=== PATIENT | female | born 1950 | race Caucasian/White ===

== ENCOUNTER 2025-03-14 06:45 | Observation (INO) | payer MEDICARE ==
[~2025-03-14] VITALS: Ht 162.6 cm; Wt 65.8 kg
[2025-03-14 06:47] VITALS: TEMP 99.5
[2025-03-14 07:26] LABS: BASOPHILS % 0.3 % (0.0-1.0); EOSINOPHILS # (AUTO) 0.1 (0.0-0.4); EOSINOPHILS % 1.9 % (0.0-6.0); HEMATOCRIT 39.2 % (34.2-44.1); HEMOGLOBIN 12.2 g/dL (12.0-16.0); LYMPHOCYTES # (AUTO) 2.4 (1.0-3.2); LYMPHOCYTES % 31.9 % (18.0-39.1); MEAN CORPUSCULAR HEMOGLOBIN 28.4 pg (28-32); MEAN CORPUSCULAR HGB CONC 31.1 g/dL (31-35); MEAN CORPUSCULAR VOLUME 91.4 fL (81-99); MONOCYTES # (AUTO) 0.8 (0.2-0.8); NEUTROPHILS # (AUTO) 4.1 (2.1-6.9); NEUTROPHILS % 54.4 % (38.7-80.0); PLATELET COUNT 243 x10e3/uL (140-360); RED BLOOD COUNT 4.29 x10e6/uL (3.6-5.1); RED CELL DISTRIBUTION WIDTH 15.5 % (11.7-14.4); WHITE BLOOD COUNT 7.56 x10e3/uL (4.8-10.8)
[2025-03-14 07:36] LABS: INR 0.87; PROTHROMBIN TIME 12.4 seconds (11.9-14.5)
[2025-03-14 07:37] LABS: PARTIAL THROMBOPLASTIN TIME 27.1 seconds (23.8-35.5)
[2025-03-14 07:43] LABS: ALBUMIN 3.4 g/dL (3.5-5.0); ANION GAP 14.2 mmol/L (8-16); BILIRUBIN,TOTAL 0.4 mg/dL (0.2-1.2); CALCIUM 8.9 mg/dL (8.4-10.2); CREATININE, SERUM 0.74 mg/dL (0.57-1.11); MAGNESIUM 2.1 MG/DL (1.3-2.1); POTASSIUM 4.2 mmol/L (3.5-5.1); TOTAL PROTEIN 6.7 g/dL (6.5-8.1)
[2025-03-14 07:49] LABS: TROPONIN I 0.001 ng/mL (0-0.300)
[2025-03-14 08:19] LABS: BILIRUBIN,URINE NEGATIVE (NEGATIVE); CLARITY,URINE CLEAR (CLEAR); COLOR,URINE YELLOW (YELLOW); GLUCOSE, URINE NEGATIVE (NEGATIVE); KETONES,URINE NEGATIVE (NEGATIVE); LEUKOCYTE ESTERASE ,URINE NEGATIVE (NEGATIVE); NITRITE,URINE NEGATIVE (NEGATIVE); PH,URINE 7 (5 - 7); PROTEIN,URINE DIPSTICK NEGATIVE (NEGATIVE); URINE UROBILINOGEN 0.2 mg/dL (0.2 - 1)
[2025-03-14 08:29] LABS: BACTERIA,URINE RARE /HPF; EPITHELIAL CELLS,URINE RARE /LPF; RBC,URINE 0-5 /HPF (0-5); WBC,URINE (MAN) 0-5 /HPF (0-5)
[2025-03-14] MEDS: SODIUM CHLORIDE 0.9% 500ML 500 ML IV ONE (08:40)
[2025-03-14] MEDS ORDERED: IOPAMIDOL 370 MG/ML 100 ML INFUS..BTL INJ ONE (08:49)
[2025-03-14] MEDS ORDERED: ROSUVASTATIN CAL5 MG PO (08:53)
[2025-03-14] MEDS ORDERED: TIZANIDINE HCL2 MG PO (08:53)
[2025-03-14] MEDS ORDERED: ATIVAN0.5 MG PO (08:53)
[2025-03-14] MEDS ORDERED: ZYRTEC10 M3 PEG (08:53)
[2025-03-14] MEDS ORDERED: PANTOPRAZOLE SO40 MG PO (08:53)
[2025-03-14] MEDS ORDERED: LOPRESSOR25 MG PO (08:53)
[2025-03-14] MEDS ORDERED: OLANZAPINE5 MG PO (08:53)
[2025-03-14] MEDS ORDERED: ONDANSETRON HCL INJ 2MG/ML 2ML 2 MG/ML VIAL IV PRN (09:00)
[2025-03-14] MEDS ORDERED: HYDROCODONE/APAP 5MG-325MG TAB PO PRN ×2 (09:00→12:45)
[2025-03-14] MEDS ORDERED: SODIUM CHLORIDE 0.9% 100 ML ONE (10:16)
[2025-03-14] MEDS: ASPIRIN 81 MG ENTERIC COATED PO SCH (10:23)
[2025-03-14] MEDS ORDERED: POTASSIUM CHLORIDE 20 MEQ TAB CR PO PRN (12:45)
[2025-03-14] MEDS ORDERED: HYDRALAZINE HCL 20 MG/ML VIAL IV PRN (12:45)
[2025-03-14] MEDS ORDERED: DOCUSATE SODIUM 100 MG CAP PO PRN (12:45)
[2025-03-14] MEDS ORDERED: ACETAMINOPHEN 325 MG TAB PO PRN (12:45)
[2025-03-14] MEDS ORDERED: ALBUTEROL/IPRATROPIUM 3 ML NEB NEB PRN (12:45)
[2025-03-14] MEDS ORDERED: LIDOCAINE 4% PATCH TP PRN (12:45)
[2025-03-14] MEDS ORDERED: DEXTROSE 50% SYRINGE 50 ML IV PRN (12:45)
[2025-03-14] MEDS ORDERED: DIPHENHYDRAMINE HCL 25 MG CAP PO PRN (12:45)
[2025-03-14] MEDS ORDERED: BENZONATATE 100 MG CAP PO PRN (12:45)
[2025-03-14] MEDS ORDERED: SIMETHICONE 80 MG CHEW PO PRN (12:45)
[2025-03-14 14:01] VITALS: PULSE 69; RESP 16
[2025-03-14 15:43] VITALS: BP 131/86; PULSE 66; RESP 18; TEMP 98.4; O2SAT 99
[2025-03-14] MEDS ORDERED: TIZANIDINE HCL 4 MG TAB PO PRN (16:30)
[2025-03-14] MEDS ORDERED: LORAZEPAM 0.5 MG TAB PO PRN (16:30)
[2025-03-14 17:04] LABS: TROPONIN I 0.004 ng/mL (0-0.300)
[2025-03-14 17:15] VITALS: BP 131/86; PULSE 66; RESP 18; TEMP 98.4; O2SAT 99
[2025-03-14] MEDS: ENOXAPARIN SOD INJ 40 MG/0.4 ML SYR SC SCH (17:23)
[2025-03-14] MEDS: METOPROLOL TARTRATE 25 MG TAB PO SCH (17:30)
[2025-03-14 20:00] VITALS: BP 155/68; PULSE 65; RESP 18; TEMP 97.4; O2SAT 98
[2025-03-14] MEDS: MELATONIN 5 MG TABLET PO PRN (21:34)
[2025-03-14] MEDS: ACETAMINOPHEN 325 MG TAB PO PRN (21:35)
[2025-03-15] VITALS: BP 180/64; PULSE 57; RESP 18; TEMP 97.2; O2SAT 98
[2025-03-15 00:37] LABS: TROPONIN I 0.007 ng/mL (0-0.300)
[2025-03-15 05:46] LABS: BASOPHILS % 0.5 % (0.0-1.0); EOSINOPHILS # (AUTO) 0.2 (0.0-0.4); EOSINOPHILS % 2.6 % (0.0-6.0); HEMATOCRIT 35.5 % (34.2-44.1); HEMOGLOBIN 11.5 g/dL (12.0-16.0); LYMPHOCYTES % 33.7 % (18.0-39.1); MEAN CORPUSCULAR HEMOGLOBIN 28.9 pg (28-32); MEAN CORPUSCULAR HGB CONC 32.4 g/dL (31-35); MEAN CORPUSCULAR VOLUME 89.2 fL (81-99); MONOCYTES # (AUTO) 0.7 (0.2-0.8); MONOCYTES % 12.5 % (4.4-11.3); NEUTROPHILS # (AUTO) 2.9 (2.1-6.9); NEUTROPHILS % 50.4 % (38.7-80.0); PLATELET COUNT 209 x10e3/uL (140-360); RED BLOOD COUNT 3.98 x10e6/uL (3.6-5.1); RED CELL DISTRIBUTION WIDTH 15.5 % (11.7-14.4); WHITE BLOOD COUNT 5.82 x10e3/uL (4.8-10.8)
[2025-03-15 06:11] LABS: ALBUMIN 3.2 g/dL (3.5-5.0); ALBUMIN/GLOBULIN RATIO 1.1 (0.8-2.0); ANION GAP 11.6 mmol/L (8-16); BILIRUBIN,TOTAL 0.4 mg/dL (0.2-1.2); CALCIUM 8.8 mg/dL (8.4-10.2); CREATININE, SERUM 0.69 mg/dL (0.57-1.11); POTASSIUM 4.6 mmol/L (3.5-5.1); TOTAL PROTEIN 6.2 g/dL (6.5-8.1)
[2025-03-15 06:45] LABS: MAGNESIUM 2.1 MG/DL (1.3-2.1)
[2025-03-15 07:00] VITALS: BP 180/64; PULSE 57; RESP 18; TEMP 97.2; O2SAT 98
[2025-03-15 07:07] LABS: THYROID STIMULATING HORMONE 4.558 uIU/mL (0.350-4.940)
[2025-03-15 07:45] VITALS: BP 134/71; PULSE 58; RESP 20; TEMP 98.7; O2SAT 98
[2025-03-15] MEDS: CRESTOR 10MG PO SCH (10:36)
[2025-03-15] MEDS: PANTOPRAZOLE SOD 40 MG TABEC PO SCH (10:36)
[2025-03-15 11:29] VITALS: BP 132/70; PULSE 65; RESP 20; TEMP 98.5; O2SAT 98
[2025-03-15 15:17] VITALS: BP 153/74; PULSE 50; RESP 20; TEMP 97.9; O2SAT 97
== END 2025-03-15 15:45 | disposition home or self-care (01) ==
LOC: ER 06:57 → ERHOLD 09:18 → MED/SURG2 15:25
PROVIDERS: ADMIT Internal Medicine; ATTEND Internal Medicine
DX: R07.89 Other chest pain (principal); C18.9 Malignant neoplasm of colon, unspecified; C78.00 Secondary malignant neoplasm of unspecified lung; E78.5 Hyperlipidemia, unspecified; G89.29 Other chronic pain; I10 Essential (primary) hypertension
CPT/HCPCS: 36415 ×2; 71045; 71260; 80053 ×2; 81001; 82550; 83735 ×2; 83880; 84443; 84484; 85025 ×2; 85379; 85610; 85730; 93005; 93306; 93970; 97161; 99284; G0378 ×2; J1650; J2470; J7040; J7050; Q9967